=== PATIENT | female | born 1930 | race Caucasian/White ===

== ENCOUNTER 2017-08-27 16:37 | Inpatient (IN) | payer OTHER ==
[~2017-08-27] VITALS: Ht 165.1 cm; Wt 51.3 kg
[2017-08-27 16:37] VITALS: BP 113/62
[~2017-08-27 16:37] MED LIST: ACCUNEB SO1.25 MG/1 INH; ANUSOL-HC25 MG RECTAL; ASPIR 8181 MG PO; ASPIRIN EC81 M1 PO; AUGMENTIN 875875 MG PO; B12INJ IM; CELEXA 20 MG TA20 M1 PO; CELEXA20 MG PO; CIPROFLOXACIN500 M1 PO; CLONAZEPAM 0.50.5 M1 PO; COLACE100 MG PO; DILTIAZEM 24HR360 M1 PO; ENOXAPARIN40 MG/0.1 INJECTION; FLEXERIL PO; HYDROCODON-ACE1 EAC8 PO; HYDROCORTISON28.4 GM TOP; IRON325 PO; K-DUR 20 MEQ T20 MEQ PO; LASIX 20 MG TAB20 MG PO; LASIX 40 MG TAB40 M1 PO; LEVAQUIN 500 M500 M1 PO; LEVAQUIN 500 M500 M2 PO; METAMUCIL WAFER1 PK1 PO; MIRALAX17 GM PO; NORCO 7.5-3251 EACH PO; PERCOCET 5-3251 EACH PO; PERCOCET 7.5-31 EACH; PERCOCET 7.5-31 EACH PO; POTASSIUM20 PO; PREDNISONE 10 M10 M1 PO; PRILOSEC 20 MG20 MG PO; PRILOSEC40 MG PO; PROTONIX40 M1 PO; REMERON15 MG PO; SENOKOT-S1 TA1 PO; SYNALAR30 GM TP; TOPROL XL25 MG PO; ZETIA10 MG PO
[2017-08-27 16:52] LABS: ABSOLUTE BASOPHILS 0.1 thou/uL (0.0-0.2); ABSOLUTE EOSINOPHILS 0.2 thou/uL (0.0-0.7); ABSOLUTE LYMPHOCYTES 1.9 thou/uL (0.8-5.3); ABSOLUTE NEUTROPHILS 6.8 thou/uL (1.6-8.1); BASOPHILS 0.5 %; EOSINOPHILS 2.4 %; HEMATOCRIT 30.7 % (37.0-47.0); HEMOGLOBIN 9.9 gm/dL (12.0-15.0); LYMPHOCYTES 19.1 %; MCHC 32.3 g/dL (28.0-37.0); MCV 93.1 fL (80.0-100.0); MONOCYTES 9.9 %; MPV 8.2 fl. (7.2-11.1); NUCLEATED RBCS 0 /100WBC; PLATELET COUNT* 299 thou/uL (150-400); POLYS 68.1 %; RBC 3.29 mil/uL (4.20-5.00); RDW-CV 14.9 % (10.5-14.5)
[2017-08-27 17:02] LABS: ANION GAP 3 mmol/L (7-16); BUN 37 mg/dL (7-18); CALCIUM 8.2 mg/dL (8.5-10.1); CHLORIDE 104 mmol/L (98-107); CO2 30 mmol/L (21-32); CREATININE 2.4 mg/dL (0.6-1.3); GLUCOSE 97 mg/dL (70-99); POTASSIUM 4.9 mmol/L (3.5-5.1); SODIUM 137 mmol/L (136-145)
[2017-08-27 17:04] LABS: APTT 23.1 Seconds (25.0-31.3); PROTIME 9.4 Seconds (9.20-11.50)
[2017-08-27 17:08] LABS: ALBUMIN 2.7 g/dL (3.4-5.0); ALKALINE PHOSPHATASE 68 U/L (46-116); LIPASE 164 U/L (73-393); SGOT 7 U/L (15-37); SGPT 11 U/L (30-65); TOTAL BILIRUBIN 0.1 mg/dL (<0.1-1.0); TOTAL PROTEIN 6.2 g/dL (6.4-8.2); TROPONIN-I LEVEL <0.06 ng/mL (<0.06)
[2017-08-27 17:16] LABS: URINE BILIRUBIN NEGATIVE (Negative); URINE BLOOD 3+ (Negative); URINE CLARITY CLOUDY; URINE COLOR RED; URINE GLUCOSE-RANDOM NEGATIVE (Negative); URINE KETONES NEGATIVE (Negative); URINE LEUKOCYTES-REFLEX 1+ (Negative); URINE NITRITE-REFLEX NEGATIVE (Negative); URINE PROTEIN 2+ (Negative); URINE SPECIFIC GRAVITY 1.015 (1.005-1.030); URINE UROBILINOGEN 0.2 E.U./dl (0.2-1.0)
[2017-08-27 17:21] LABS: CRYSTALS None Seen /LPF (None Seen); SQUAMOUS NONE SEEN /LPF (0-3); URINE RBC >20 Many /HPF (0-2)
[2017-08-27 17:22] LABS: BACTERIA-REFLEX None Seen /HPF (None Seen); CASTS None Seen /LPF (None Seen); URINE WBC-REFLEX >25 Many /HPF (0-5)
[2017-08-27 20:05] VITALS: BP 102/54
[2017-08-27 20:40] VITALS: BP 123/65; BP 131/60
[2017-08-28] VITALS: BP 108/60
[2017-08-28 04:00] VITALS: BP 146/68
--- NOTE | 2017-08-28 04:26 | NUR ---
PATIENT REMAINS STABLE SINCE ADMISSION TO FLOOR AND PROGRESSING TOWARDS GOALS: PATIENT HAS NOT HAD ANY BLOODY STOOLS. HYDROCORTISONE CREAM APPLIED TO EXTERNAL HEMORRHOIDS. PATIENT HAS BEEN VOIDING ADEQUATELY THIS SHIFT. PATIENT DENIES NAUSEA THIS SHIFT. ON 2L O2 NC WITH SATS >92%. HOURLY ROUNDING OBSERVED. CALL LIGHT WITHIN REACH
[2017-08-28 04:38] LABS: ABSOLUTE BASOPHILS 0.1 thou/uL (0.0-0.2); ABSOLUTE EOSINOPHILS 0.2 thou/uL (0.0-0.7); ABSOLUTE LYMPHOCYTES 1.3 thou/uL (0.8-5.3); ABSOLUTE MONOCYTES 0.8 thou/uL (0.0-1.2); ABSOLUTE NEUTROPHILS 5.5 thou/uL (1.6-8.1); BASOPHILS 0.8 %; EOSINOPHILS 2.3 %; HEMATOCRIT 28.3 % (37.0-47.0); HEMOGLOBIN 9.3 gm/dL (12.0-15.0); LYMPHOCYTES 16.2 %; MCH 30.5 pg (26.0-34.0); MCHC 32.8 g/dL (28.0-37.0); MONOCYTES 9.8 %; MPV 7.7 fl. (7.2-11.1); NUCLEATED RBCS 0 /100WBC; PLATELET COUNT* 263 thou/uL (150-400); POLYS 70.9 %; RBC 3.04 mil/uL (4.20-5.00); RDW-CV 14.9 % (10.5-14.5); WBC 7.7 thou/uL (4.0-11.0)
[2017-08-28 05:13] LABS: CALCIUM 8.3 mg/dL (8.5-10.1); POTASSIUM 4.8 mmol/L (3.5-5.1)
[2017-08-28 09:38] VITALS: BP 154/78
[2017-08-28 11:20] VITALS: BP 146/82
--- NOTE | 2017-08-28 14:46 | EKG ---
[place] [address] ELECTROCARDIOGRAM REPORT Name: LUNGBRANDEN Room: [address] IN .R.#: [id number] Admission: 08/27/17 Attend Phys: Arie Khoury MD Discharge: Date of : 10/19/[birth year] Report #: [id number] THIS REPORT FOR: //name// [facility] ED Test Date: 2017-08-27 Test Time: 16:50:46 Pat Name: BRANDEN MARIE Department: Room: Gender: F Cognos: Bk SULLIVAN : 1930 Requested By: Yrn Finch Order Number: [id number] MD: Adan Aguirre Measurements Intervals [place] Rate: 64 P: 13 NJ: 288 QRS: -36 QRSD: 85 T: 15 QT: 401 QTc: 414 Interpretive Statements Sinus rhythm Atrial premature complex Prolonged NJ interval Left ventricular hypertrophy, by voltage Left axis deviation, consider anterior fascicular block Anterior Q waves, possibly due to LVH or LAFB Compared to ECG 12/04/2016 16:59:46 Atrial premature complex(es) now present Left ventricular hypertrophy now present Q waves now present Left-axis deviation no longer present Electronically Signed On 08-28-2017 14:46:08 CDT by Adan Aguirre [email or web address] <ELECTRONICALLY SIGNED> By: Adan Aguirre MD, [facility] 08/28/17 1446 165 [id number] Adan Aguirre MD, [facility] /EPI
[2017-08-28 14:56] LABS: % SATURATION 17 % (20-39); IRON 34 ug/dL (50-175)
--- NOTE | 2017-08-28 15:10 | NUR ---
Pt is A&O. Resides at [facility]. Pt states that facility provides meals and assist with her showers. Pt is independent with all other IADLS. Pt has a walker and wc that she can use as needed. Hx of . Hx of SNF at [facility] and [facility]. Strong support sx. Goal is to return to [facility] at or. Following.
[2017-08-28 15:24] VITALS: BP 114/60
--- NOTE | 2017-08-28 18:54 | NUR ---
PT FREWUENTLY URINATING 50-100MLS AT A TIME. INFORM DR. SHARMA OF [facility] 100. INSTRUCTED TO DISCONTINUE IVF. PT HAD MODERATE BOWEL MOVEMENT TODAY.
--- NOTE | 2017-08-28 19:18 | NUR ---
HEATHER DUFFYORT GIVEN TO JOSETTE HUGHES.
[2017-08-28 20:00] VITALS: BP 131/71
[2017-08-29] VITALS: BP 146/73
--- NOTE | 2017-08-29 03:10 | NUR ---
PT ALERT ORIENTED. CALLS OUT FREQUENTLY FOR BP AT LEAST TWICE PER HR. TELEMETRY SHOWS SR [address] DEGREE AVB. O2 AT 2 LITERS NC. WILL CONTINUE TO MONITOR.
[2017-08-29 03:38] VITALS: BP 135/68
[2017-08-29 04:58] LABS: ABSOLUTE EOSINOPHILS 0.2 thou/uL (0.0-0.7); ABSOLUTE LYMPHOCYTES 1.2 thou/uL (0.8-5.3); ABSOLUTE MONOCYTES 0.8 thou/uL (0.0-1.2); ABSOLUTE NEUTROPHILS 6.9 thou/uL (1.6-8.1); BASOPHILS 0.5 %; EOSINOPHILS 2.5 %; HEMATOCRIT 30.2 % (37.0-47.0); HEMOGLOBIN 9.8 gm/dL (12.0-15.0); LYMPHOCYTES 12.7 %; MCH 30.1 pg (26.0-34.0); MCHC 32.4 g/dL (28.0-37.0); MCV 92.9 fL (80.0-100.0); MONOCYTES 9.2 %; NUCLEATED RBCS 0 /100WBC; PLATELET COUNT* 275 thou/uL (150-400); POLYS 75.1 %; RBC 3.26 mil/uL (4.20-5.00); RDW-CV 14.8 % (10.5-14.5); WBC 9.2 thou/uL (4.0-11.0)
[2017-08-29 05:11] LABS: ALBUMIN 2.4 g/dL (3.4-5.0); CALCIUM 8.9 mg/dL (8.5-10.1); CREATININE 1.8 mg/dL (0.6-1.3); POTASSIUM 4.8 mmol/L (3.5-5.1); TOTAL BILIRUBIN 0.2 mg/dL (<0.1-1.0); TOTAL PROTEIN 5.8 g/dL (6.4-8.2)
[2017-08-29 07:49] VITALS: BP 150/88
--- NOTE | 2017-08-29 08:56 | NUR ---
ASSUMED CARE OF PT THIS AM AROUND 0715- DRIED YEAST SUPERVISOR IN PLACE ORDERED, TRACING SR WITH 1ST DEGREE- UPON ASSESSMENT PT NOTED TO BE RESTING IN BED, EYES CLOSED BUT ARROUSABLE- PT A&O X1-2 WITH NOTED CONFUSSION- CONTINENT OF BOWEL AND BLADDER, USING BED NG-ASSIST X1 WITH TRANSFERS- LCTA, RESP EVEN AND UN-LABORED- VSS, O2 SAT 99% ON 2L VIA NC- ABDOMEN SOFT/FLAT/NON-TENDER, BSX 4 QUADS- PT REPORTS BM X2 DAYS AGO, SCHEDULED SOFTNER GIVEN THIS AM- IV NOTED TO LEFT FA INTACT, IV ABT GIVEN THIS AM PRESCIBED- FULL LIQUIDS IN PLACE WITH GOOD PO INTAKE NOTED THIS AM WITH BREAKFAST- PRN HYDROCODONE GIVEN THIS AM AT 0838 FOR CHRONIC BACK PAIN- CALL LIGHT AND PERSONAL BELONGINGS WITH IN REACH- HOURLY ROUNDS IN PLACE R/T SAFETY/NEEDS- ALL NEEDS MET AT THIS TIME-WCTM
[2017-08-29 11:15] VITALS: BP 150/88
--- NOTE | 2017-08-29 11:23 | NUR ---
Pt discharging back to her SOFIA today at [facility]. [facility] to continuous pickling line pickler at 2pm. Faxed dc orders. Nurse to call report to Addis at [phone]. Left for Pt's son Andre.
[2017-08-29] MEDS ORDERED: AUGMENTIN 875-1 EACH PO (11:47)
[2017-08-29 12:00] VITALS: BP 157/88
--- NOTE | 2017-08-29 14:47 | NUR ---
ORDERS RECIEVED FOR OKAY TO D/C THIS SHIFT BACK TO [place] AT [facility] PER - IV TO LEFT FA D/C'D ALONG WITH DIRECTOR OF PHYSICAL THERAPY PRIOR TO D/C- REPORT CALLED TO [facility] WITH REPORT GIVEN TO MICHAELLE SNOW WITH ALL QUESTIONS AND CONCERNS ADDRESSED- NEW ABT COMMUNICATED WELL NEED FOR BOWEL REGEMINEN FOR CONSTIPATION WITH NOTED SCHEDULED MIRALAX ADDED WITH STOOL SOFTNERS- D/C TEACHING/EDUCATION GIVEN TO PT WITH ALL QUESTIONS AND CONCERNS ADDRESSED- BELONGINGS PACKED AND ACCOUNTED FOR PER PT AND TECH PRIOR TO D/C- PT CURRENLTY RESTING IN BED, DRESSED AWAITING W/C VAN FOR TRANSPORT- ALL NEEDS MET AT THIS TIME-WCTM
--- NOTE | 2017-09-10 08:22 | CON ---
[address] [address] CONSULTATION Name: BRANDEN MARIE Room: [address] IN .R.#: [id number] Admission: 08/27/17 Attend Phys: Arie Khoury MD Discharge: 08/29/17 Date of : 10[birth year] Report #: [id number] THIS REPORT FOR: //name// CC: Arie Cook Primary Care Physician at [facility] Joshua Perales DICTATED BY: Sandy Harvey [facility] DATE OF SERVICE: 08/28/2017 PRIMARY CARE PHYSICIAN: At the [facility]. Please note at the time of this dictation, the patient was seen and physically examined by myself. REASON FOR CONSULTATION: Rectal bleeding. HISTORY OF PRESENT ILLNESS: This is an 86-year-old female who presented to the Emergency Room after noticing on Sunday and then again on Sunday morning, she had an episode of bright red blood following with her bowel movement and then a repeat again the following day. She has not had any further bowel movements since she has been here at the hospital; however, she has been kept n.p.o. She denies any nausea, vomiting, fever or chills or any abdominal pain at this time. She states she has been having some issues with constipation here lately as well. The patient was last seen by us in 2013 for a similar problem for rectal bleeding and when she underwent a flex sigmoidoscopy that showed diverticulosis and large internal and external hemorrhoids. Since she has been here, she has had no further issues with any bleeding and hemoglobin has been relatively stable in the 9 range, which is close to her baseline. ALLERGIES: No known drug allergies. MEDICATIONS: From home include diltiazem, clonazepam, hydrocodone, aspirin, Flexeril, MiraLax, Remeron, Lasix, Protonix, K-Dur, iron, Celexa, and B12. PAST MEDICAL HISTORY: Hypertension, TIA, OR, atrial fib, dementia, tremors, GERD, and some depression along with acute kidney injury. PAST SURGICAL HISTORY: Negative. FAMILY HISTORY: Noncontributory. SOCIAL HISTORY: Denies any alcohol, tobacco [place] [address] CONSULTATION Name: BRANDEN MARIE Room: [address]#: [id number] Admission: 08/27/17 Attend Phys: Arie Khoury MD Discharge: 08/29/17 Date of : 10/19/[birth year] Report #: [id number] REVIEW OF SYSTEMS: Twelve-point review of systems is essentially negative except what is mentioned in the HPI. PHYSICAL EXAMINATION: VITAL SIGNS: Temperature 36.9, pulse 80, respirations 18, blood pressure 146/82. HEART: Regular rate and rhythm. LUNGS: Clear, slightly diminished. ABDOMEN: Soft, positive bowel sounds in all 4 quadrants with no masses or tenderness noted. LABORATORY DATA: Hemoglobin on admission was 9.9, she is 9.3, hematocrit 28.3, white count is 7.7, platelets 263. Sodium 141, potassium 4.8, chloride 108, CO2 of 27, BUN is 30, creatinine is 2, GFR is 24, glucose 79. PT is 9.4, INR is 1. CT of the abdomen and pelvis shows a lesion in the pancreatic head that is stable, otherwise diverticular disease and otherwise negative. IMPRESSION: 1. Rectal bleeding. 2. History of constipation. 3. Chronic anemia. PLAN: 1. We will monitor H and H. 2. Monitor for overt bleeding. 3. We will start Colace b.i.d. 4. Labs, ferritin, iron studies and B12. 5. Full liquid diet. 6. Further recommendations to be made after Dr. Garay sees the patient later today. Thank you for allowing us to participate in this patient's care. Please do not hesitate to call with any questions in regard to this consult. <ELECTRONICALLY SIGNED> By: Yasmani Garay MD 09/10/17 0822 1409 [id number] Garay MD /nt
--- NOTE | 2017-09-10 08:22 | CON ---
[address] [address] CONSULTATION Name: BRANDEN MARIE Room: [address] IN M.R.#: [id number] Admission: 08/27/17 Attend Phys: Arie Khoury MD Discharge: 08/29/17 Date of : 10/[birth year] Report #: [id number] THIS REPORT FOR: //name// CC: Arie Carrington [facility] DATE OF SERVICE: 08/28/2017 ADDENDUM I have personally seen and examined the patient and reviewed labs and imaging. The patient with history of diverticular bleed in the past, who had a flex sigmoidoscopy a year ago, which was significant for large internal and external hemorrhoids and diverticula. She presents with rectal bleeding and constipation. Her hemoglobin is range of 9. She usually runs between 7-11. Currently, there is no evidence of any active GI bleeding. Given the patient's age, we will monitor her and if her hemoglobin remains stable, no further action is needed. If she drops her hemoglobin or if she starts having acute bleeding, we will consider RBC tagged scan. Meanwhile, I will check her iron levels and replace as needed. <ELECTRONICALLY SIGNED> By: Yasmani Garay MD 09/10/17 0822 [id number] Maria E Garay MD /nt
== END 2017-08-29 14:55 | DRG 177 ==
LOC: M.ERS 16:37 → M.TBA-ER 17:17 → M.2W 17:17
PROVIDERS: Family Medicine; Nurse Practitioner Adult Health; ADMIT Internal Medicine
DX: J69.0 Pneumonitis due to inhalation of food and vomit (principal); J96.00 Acute respiratory failure, unspecified whether with hypoxia or hypercapnia; D62 Acute posthemorrhagic anemia; N17.9 Acute kidney failure, unspecified; I10 Essential (primary) hypertension; I48.91 Unspecified atrial fibrillation; F03.90 Unspecified dementia, unspecified severity, without behavioral disturbance, psychotic disturbance, mood disturbance, and anxiety; K21.9 Gastro-esophageal reflux disease without esophagitis; F32.9 Major depressive disorder, single episode, unspecified; K57.90 Diverticulosis of intestine, part unspecified, without perforation or abscess without bleeding; E86.0 Dehydration; R25.1 Tremor, unspecified; I25.2 Old myocardial infarction; Z86.73 Personal history of transient ischemic attack (TIA), and cerebral infarction without residual deficits; Z79.899 Other long term (current) drug therapy; Z79.82 Long term (current) use of aspirin; K64.9 Unspecified hemorrhoids

== ENCOUNTER 2018-04-19 11:46 | Inpatient (IN) | payer OTHER ==
[~2018-04-19] VITALS: Ht 152.4 cm; Wt 53.9 kg
--- NOTE | ~2018-04-19 | CON ---
[address] [address] CONSULTATION Name: BRANDEN MARIE Room: [address] IN M.R.#: [id number] Admission: 04/19/18 Attend Phys: Karla Paul MD Discharge: Date of : 10[birth year] Report #: [id number] THIS REPORT FOR: //name// [facility]: [facility] DATE OF SERVICE: 04/20/2018 REASON FOR CONSULTATION: Elevated creatinine. HISTORY OF PRESENT ILLNESS: The patient is an 87-year-old female, with a history of chronic kidney disease stage 4, baseline creatinine of 1.8-2.4 based on her lab results in August 2017, admitted after she presented with persistent cough and left-sided chest pain with hypoxia. We are consulted to assist with diagnosis and management of her elevated creatinine. The patient's creatinine on presentation was at 2.4, it is down to 2.3 today. The patient states that she has had decreased oral intake over the last few days as she was not feeling well. Denies dysuria, urgency or urinary frequency. No contrast exposures. PAST MEDICAL HISTORY: As mentioned above. In addition, she has history of TIAs, RI, atrial fibrillation, dementia, GERD, depression, tremors, lumpectomy. FAMILY HISTORY: No family history of kidney disease. Family history of heart disease. SOCIAL HISTORY: No smoking, alcohol or illicit drug use. ALLERGIES: The patient is not allergic to any medications. SOCIAL HISTORY: She is a skilled nursing resident. No alcohol. No smoking. No illicit drug use. REVIEW OF SYSTEMS: A 12-point review of system was done and pertinent positives are mentioned in the history of present illness. PHYSICAL EXAMINATION: VITAL SIGNS: Has a blood pressure of 110/58, pulse rate of 65, respiratory rate of 15, temperature of 36.2, oxygen saturation is 98% on 2 liters nasal cannula. GENERAL: She does not appear to be in any respiratory distress at this time. HEENT: Dry buccal membranes, pink conjunctivae, anicteric sclerae. NECK: No JVD. Trachea midline. CARDIOVASCULAR: Showed normal S1 and S2. She has a holosystolic murmur at the apex. PULMONARY: Showed rhonchi in bilateral lungs. ABDOMEN: Soft, nontender with positive bowel sounds. EXTREMITIES: Showed no edema, [place] [address] CONSULTATION Name: BRANDEN MARIE Room: [address] IN [facility]#: [id number] Admission: 04/19/18 Attend Phys: Karla Paul MD Discharge: Date of : 10[birth year]19/[birth year] Report #: [id number] SKIN: Warm and dry. NEUROLOGIC: Nonfocal. LABORATORY DATA: Reviewed. White cell count of 7.8, hemoglobin of 7.6, platelet count of 266. Chemistry showed that she has sodium of 141, potassium 4.6, chloride 108, BUN and creatinine are 24 and 2.3, calcium of 8.2, albumin of 1.8. Urine studies showed positive blood, positive esterase and 6-15 white cells. IMPRESSION: 1. Acute on chronic kidney disease, stage 4. Creatinine appears to be close to her baseline creatinine. Her creatinine in August 2017 was between 1.8 and 2.2 with GFR of about 23-27. Slight increase in the creatinine, probably prerenal azotemia with her decreased oral intake over the last few days. 2. Essential hypertension. 3. Chronic atrial fibrillation. 4. Pneumonia. 5. Urinary tract infection. 6. Dementia. PLAN: Follow up on urine culture. Continue antibiotics. Gentle hydration. Renal ultrasound is reviewed and it showed no hydronephrosis. She has inferior right renal cyst about 2 cm in size. Further recommendations to follow based on hospital course. Once again, thank you for the consult. By: 0902 40Caleb Molina MD /nt
[~2018-04-19 11:46] MED LIST changes: +AUGMENTIN 875-1 EACH PO
[2018-04-19 11:50] VITALS: BP 125/65
[2018-04-19 12:00] LABS: HEMATOCRIT 27.5 % (37.0-47.0); HEMOGLOBIN 8.7 gm/dL (12.0-15.0); MCH 29.8 pg (26.0-34.0); MCHC 31.5 g/dL (28.0-37.0); MCV 94.4 fL (80.0-100.0); MPV 8.7 fl. (7.2-11.1); NUCLEATED RBCS 0 /100WBC; PLATELET COUNT* 297 thou/uL (150-400); RBC 2.91 mil/uL (4.20-5.00); RDW-CV 14.7 % (10.5-14.5); WBC 9.6 thou/uL (4.0-11.0)
[2018-04-19] MEDS ORDERED: CHOLECALCIFEROL1 GM PO (12:04)
[2018-04-19] MEDS ORDERED: MUCINEX600 MG PO (12:05)
[2018-04-19] MEDS ORDERED: LEVAQUIN 750 M750 MG PO (12:05)
[2018-04-19] MEDS ORDERED: ATROVENT HFA14 GM INH (12:07)
[2018-04-19 12:08] LABS: INR 0.9; PROTIME 9.3 Seconds (9.20-11.50)
[2018-04-19 12:09] LABS: CALCIUM 8.5 mg/dL (8.5-10.1); CREATININE 2.4 mg/dL (0.6-1.3)
[2018-04-19 12:20] LABS: ALBUMIN 2.2 g/dL (3.4-5.0); MAGNESIUM 1.9 mg/dL (1.8-2.4); TOTAL BILIRUBIN 0.2 mg/dL (<0.1-1.0); TOTAL PROTEIN 6.3 g/dL (6.4-8.2); TROPONIN-I LEVEL 0.48 ng/mL (<0.06)
[2018-04-19 12:23] LABS: ABSOLUTE LYMPHOCYTES 1.2 thou/uL (0.8-5.3); ABSOLUTE MONOCYTES 0.7 thou/uL (0.0-1.2); ABSOLUTE NEUTROPHILS 7.7 thou/uL (1.6-8.1); PLATELET ESTIMATE ADEQUATE
[2018-04-19 12:24] LABS: ANISOCYTOSIS 1+; POIKILOCYTOSIS 1+
[2018-04-19 13:51] LABS: URINE BILIRUBIN NEGATIVE (Negative); URINE BLOOD 2+ (Negative); URINE CLARITY CLEAR; URINE COLOR YELLOW; URINE GLUCOSE-RANDOM NEGATIVE (Negative); URINE KETONES NEGATIVE (Negative); URINE LEUKOCYTES-REFLEX 1+ (Negative); URINE NITRITE-REFLEX NEGATIVE (Negative); URINE PROTEIN NEGATIVE (Negative); URINE UROBILINOGEN 0.2 E.U./dl (0.2-1.0)
[2018-04-19 13:58] LABS: BACTERIA-REFLEX 1-9 Few /HPF (None Seen); CASTS None Seen /LPF (None Seen); CRYSTALS None Seen /LPF (None Seen); MUCUS None Seen strn/LPF (None Seen); SQUAMOUS 4-10 Moderate /LPF (0-3); URINE RBC 0-2 Rare /HPF (0-2); URINE WBC-REFLEX 6-15 Few /HPF (0-5)
[2018-04-19 14:14] LABS: INFLUENZA A ANTIGEN None Detected (None Detect); INFLUENZA B ANTIGEN None Detected (None Detect)
[2018-04-19 15:52] VITALS: BP 134/58
[2018-04-19 16:00] VITALS: BP 129/60
--- NOTE | 2018-04-19 17:39 | NUR ---
PT ADMITTED FROM ED WITH PNEUMONIA, HYPOXIA, AND ELEVATED TROP. PT DENIES C/O. HRR, MURMUR, TELE SR. LUNGS COARSE, COUGH LOOSE AND PT REPORTS NO SPUTUM. RESPIRATIONS EVEN AND UNLABORED AT REST, O2 SAT UPPER 90'S 2L O2 NC. PT DOES NOT WEAR O2 AT HOME. PT UP WITH MIN ASSIST, TREMORS ALL EXTREMITIES. PT ORIENTED TO ROOM, ABLE TO MAKE NEEDS KNOWN, CALL LIGHT IN REACH
--- NOTE | 2018-04-19 18:17 | EKG ---
[place] [address] ELECTROCARDIOGRAM REPORT Name: LUNGBRANDEN Room: [address] ADM IN M.R.#: [id number] Admission: 04/19/18 Attend Phys: Karla Paul MD Discharge: Date of : 10[birth year] Report #: [id number] THIS REPORT FOR: //name// [facility] ED Test Date: 2018-04-19 Test Time: 11:55:10 Pat Name: BRANDEN MARIE Department: Room: [facility] Gender: F Food Vendor: Bk SULLIVAN : 1930 Requested By: Hemant Ozuna Order Number: [id number] MD: Adan Aguirre Measurements Intervals [place] Rate: 78 P: -4 OR: 244 QRS: -38 QRSD: 86 T: 41 QT: 378 QTc: 431 Interpretive Statements Sinus rhythm Prolonged OR interval Delayed R-wave progression Left axis deviation, consider left anterior fascicular block Compared to ECG 08/27/2017 16:50:46 Atrial premature complex(es) no longer present Q waves no longer present Electronically Signed On 04-19-2018 18:17:15 ENGINEERING SURVEYOR by Adan Aguirre [email or web address] <ELECTRONICALLY SIGNED> By: Adan Aguirre MD, FACC 04/19/18 1817 1155 1155 Adan Aguirre MD, FACC /EPI
[2018-04-19 20:00] VITALS: BP 144/69
[2018-04-19 23:04] VITALS: BP 136/52
[2018-04-20 04:00] VITALS: BP 110/58
--- NOTE | 2018-04-20 04:46 | NUR ---
PATIENT REMAINS STABLE THIS SHIFT, VSS ON 2L O2 NC. PATIENT HAD ISSUES WITH URINARY RETENTION, BLADDER SCAN 607ML. BELLO CATHETER INSERTED PER ORDERS. PATIENT RESTING COMFORTABLY THROUGHOUT SHIFT. CALL LIGHT WITHIN REACH
[2018-04-20 05:18] LABS: HEMATOCRIT 23.8 % (37.0-47.0); HEMOGLOBIN 7.6 gm/dL (12.0-15.0); MCH 30.3 pg (26.0-34.0); MCHC 32.1 g/dL (28.0-37.0); MCV 94.4 fL (80.0-100.0); MPV 8.5 fl. (7.2-11.1); RBC 2.52 mil/uL (4.20-5.00); RDW-CV 14.7 % (10.5-14.5); WBC 7.8 thou/uL (4.0-11.0)
[2018-04-20 05:32] LABS: ALBUMIN 1.8 g/dL (3.4-5.0); CALCIUM 8.2 mg/dL (8.5-10.1); CREATININE 2.3 mg/dL (0.6-1.3); MAGNESIUM 1.8 mg/dL (1.8-2.4); POTASSIUM 4.6 mmol/L (3.5-5.1); TOTAL BILIRUBIN 0.2 mg/dL (<0.1-1.0); TOTAL PROTEIN 5.4 g/dL (6.4-8.2)
[2018-04-20 08:00] VITALS: BP 130/63
--- NOTE | 2018-04-20 08:00 | NUR ---
AM ASSESSMENT COMPLETE, DEFER TO COMPUTER CHARTING. ROUNDING AND BACKING MACHINE OPERATOR TRACKING SR WITH 1ST AVB. DENIES PAIN, DIZZINESS OR ANY DISCOMFORT AT THIS TIME. 02 ON 2L PER NC. HOB ELEVATED, CALL LIGHT WTIHIN REACH. WILL MONITOR.
[2018-04-20 10:24] LABS: % SATURATION 9 % (20-39); IRON 21 ug/dL (50-175)
[2018-04-20 12:01] VITALS: BP 106/63
--- NOTE | 2018-04-20 13:28 | CON ---
[address] [address] CONSULTATION Name: BRANDEN MARIE Room: [address] IN M.R.#: [id number] Admission: 04/19/18 Attend Phys: Karla Paul MD Discharge: Date of : [birth year] Report #: [id number] THIS REPORT FOR: //name// CC: [facility] DATE OF SERVICE: 04/19/2018 TYPE OF REPORT: Cardiology consultation. HISTORY OF PRESENT ILLNESS: The patient is an 87-year-old single white female who I was asked to see in the hospital today after she complained of being short of breath. The patient has an extensive past medical history. She has had multiple hospitalizations here at [facility]. She actually saw Dr. Mead with the Cardiology service here at [facility] back in 1997 with arm pain. She ruled out for myocardial infarction. She underwent a cardiac catheterization that showed normal coronary arteries and normal left ventricular function. She was again seen by Dr. Mead in 2005. She has a history of paroxysmal atrial fibrillation and was placed on Rythmol. She converted to sinus rhythm. She was actually seen by doctor with the Cardiology Service in 2004 when she again complained of chest pain. She was on Rythmol at that time and was not felt to be a very good candidate for anticoagulation. Her chest pain was felt to be noncardiac. She was last admitted here to [facility] a year ago with chest pain and lower GI bleeding. She is not very active at the correction but does use a walker. The patient was brought to the Emergency Room today with shortness of breath and a cough. I was asked to see her for further evaluation and treatment. She denies any recent chest pain, irregular heartbeat or syncope. PAST MEDICAL HISTORY: She has had previous tonsillectomy and appendectomy. She has a history of a tremor, memory loss and hypertension. She has had previous history of hypertension. She has had her gallbladder removed. MEDICATIONS: At this time at the correction consists of Cardizem, aspirin, Lasix, Remeron and Protonix. ALLERGIES: She has no known drug allergies. FAMILY HISTORY: Her father had heart disease. SOCIAL HISTORY: She has been three times. There is a correction in [place]. No smoking. Rarely drinks alcohol. REVIEW OF SYSTEMS: She has had no history of stroke. She has no history of asthma. She has had a history of anemia, history of GI bleeding, chronic kidney disease. She has chronic tremor[place] [address] CONSULTATION Name: BRANDEN MARIE Room: [address]#: [id number] Admission: 04/19/18 Attend Phys: Karla Paul MD Discharge: Date of : 10[birth year]19/[birth year] Report #: [id number] PHYSICAL EXAMINATION: GENERAL: Revealed an elderly frail appearing female, lying in bed. She appeared in no distress. VITAL SIGNS: She has blood pressure 120/60, pulse is 80 and she is afebrile. HEENT: She is anicteric. Conjunctivae are pale. Mucous members are dry. CHEST: Reveal coarse breath sounds. CARDIOVASCULAR: Regular rate and rhythm. Grade 3 holosystolic murmur at the apex. ABDOMEN: Soft. EXTREMITIES: Had no edema. Dorsalis pedis pulse cannot be palpated. SKIN: Cool and dry. NEUROLOGICAL: Nonfocal. RADIOLOGICAL DATA: Her ECG showed a sinus rhythm, left axis, septal Q-waves. Additional workup, she had an echocardiogram in 2014 that showed ejection fraction 60% and mild aortic stenosis. Her chest x-ray today she had a large hiatal hernia, chronic lung changes, cardiomegaly. She had a CT scan of the chest using the PE protocol today that showed evidence of the pneumonia. LABORATORY DATA: Her lab work, sodium 139, BUN 32, creatinine 2.4 and it was 2.4 in August of last year. Liver function studies were normal. Albumin is 2.2. Troponin 0.58. BNP 1604. White blood cell count 9.6 and hemoglobin 8.7, it was 7.6 in 2017. IMPRESSION AND RECOMMENDATIONS: 1. History of atrial fibrillation. I would continue diltiazem. 2. Mild aortic stenosis. 3. Pneumonia. 4. Anemia. 5. Hypertension. The patient is on a calcium jas. 6. Chronic kidney disease. 7. Resting tremor. <ELECTRONICALLY SIGNED> By: Maximo Morales MD, [facility] 04/20/18 1328 1720 [id number] Morales MD, FAC /nt
--- NOTE | 2018-04-20 16:17 | NUR ---
SAFETY SITTER DC'D PER ORDERS. PATIENT REMAINS ALERT ORIENTED. NO COMPLAINTS OF CHEST PAIN, DIZZINESS, NAUSEA OR ANY DISCOMFORT TO NURSING. TOLERATING DIET. 02 ON 2L PER NC, NO SIGN OF RESPIRATORY DISTRESS. HOB ELEVATED, CALL LIGHT WITHIN REACH. FAMILY IN EARLIER TO VISIT. WILL CONTINUE WITH PLAN OF CARE.
[2018-04-20 16:28] VITALS: BP 115/62
[2018-04-20 20:00] VITALS: BP 116/66
[2018-04-20 22:08] LABS: IgA 228 mg/dL (64-422); IgG 698 mg/dL (700-1600); IgM 55 mg/dL (26-217)
[2018-04-21 04:00] VITALS: BP 126/83
[2018-04-21 05:32] LABS: HEMATOCRIT 24.8 % (37.0-47.0); HEMOGLOBIN 8.1 gm/dL (12.0-15.0); MCH 30.6 pg (26.0-34.0); MCHC 32.8 g/dL (28.0-37.0); MCV 93.3 fL (80.0-100.0); MPV 8.4 fl. (7.2-11.1); RBC 2.66 mil/uL (4.20-5.00); RDW-CV 14.3 % (10.5-14.5); WBC 8.3 thou/uL (4.0-11.0)
--- NOTE | 2018-04-21 05:38 | NUR ---
ASSUMED CARE OF PT AFTER REPORT AT 1930. PT A&OX3. NOT ORIENTED TO TIME. FORGETFUL. PT ON O2 AT 2L NC WITH 93% O2 SAT. PT ON MEDSURG STATUS. PT UP WITH 1 ASSIST. PT WITH BELLO TO DEPENDENT DRAIN. DENIES ANY PAIN OR DISCOMFORT. HOURLY ROUNDING OBSERVED. CALL LIGHT WITHIN REACH.
[2018-04-21 05:57] LABS: ALBUMIN 1.9 g/dL (3.4-5.0); CALCIUM 8.6 mg/dL (8.5-10.1); CREATININE 2.4 mg/dL (0.6-1.3); MAGNESIUM 1.7 mg/dL (1.8-2.4); TOTAL BILIRUBIN 0.2 mg/dL (<0.1-1.0); TOTAL PROTEIN 5.7 g/dL (6.4-8.2)
--- NOTE | 2018-04-21 08:20 | NUR ---
ASSUMED PT. CARE AND RECEIVED REPORT AT 0730. PT A/OX3 (COULDN'T STATE YEAR), VSS, PT MED/SURG STATUS. ON 2L NC @ 92%. DENIES CURRENT SOB/COUGH. C/O CHRONIC BACK PAIN TO LEFT SIDE 1-05/26 CURRENTLY. FULL ASSESSMENT COMPLETED, REFER TO CHARTING. ACE NOTED TO DD WITH CLEAR YELLOW DRAINAGE. CALL LIGHT IN REACH, FALL PRECAUTIONS IN PLACE. WILL CONTINUE WITH PLAN OF CARE.
[2018-04-21 08:30] VITALS: BP 126/71
[2018-04-21 12:46] VITALS: BP 124/77
--- NOTE | 2018-04-21 15:13 | NUR ---
PT. DAUGHTER INTO VISIT. UPDATE GIVEN ON PT. DAY AND CURRENT PLAN OF CARE. PT. C/O PAIN IN BACK, ASKED FOR PAIN PILL. HYDROCODONE GIVEN PER JUN.
--- NOTE | 2018-04-21 18:58 | NUR ---
PT. UP TO RECLINER GOOD PORTION OF THE DAY. TREATED FOR BACK PAIN X 1 WITH MODERATE RELIEF. GOOD APPETITE WITH MEALS. PT. DAUGHTER AND NEICE INTO VISIT THIS SHIFT. REMAINS ON 2L NC. USING WALKER WITH MODERATE ASSIST, STATES SHE STILL FEELS WEAKER THAN NORMAL. HOURLY ROUNDING COMPLETED THROUGH OUT THE DAYF FOR PT. SAFETY.
[2018-04-21 20:00] VITALS: BP 102/57
[2018-04-22 00:10] VITALS: BP 112/56
--- NOTE | 2018-04-22 05:04 | NUR ---
ASSUMED CARE OF PT AFTER REPORT AT 1930. PT A&OX3. NOT ORIENTED TO TIME. FORGETFUL. PT ON O2 AT 2L NC WITH 92% O2 SAT. PT ON MEDSURG STATUS. PT UP WITH 1 ASSIST TO RESTROOM. PT WITH BELLO TO DEPENDENT DRAIN. PT COMPLAINED OF LEFT LEG PAIN WITH PAIN SCALE OF 5/10- PAIN MEDS GIVEN PER JUN. HOURLY ROUNDING OBSERVED. CALL LIGHT WITHIN REACH.
[2018-04-22 05:24] LABS: HEMOGLOBIN 8.3 gm/dL (12.0-15.0); MCV 93.5 fL (80.0-100.0); MPV 8.3 fl. (7.2-11.1); RBC 2.78 mil/uL (4.20-5.00); WBC 8.5 thou/uL (4.0-11.0)
[2018-04-22 06:15] LABS: CALCIUM 8.7 mg/dL (8.5-10.1); CREATININE 2.6 mg/dL (0.6-1.3); MAGNESIUM 1.7 mg/dL (1.8-2.4); POTASSIUM 5.2 mmol/L (3.5-5.1)
--- NOTE | 2018-04-22 08:30 | NUR ---
ASSUMED PT. CARE AND RECEIVED REPORT AT 0730. PT A/OX3 WITH FORGETFULNESS, VSS, PT. MED/SURG STATUS. ON 2L NC @ 94% WITH CLEAR/DIMINISH LUNG ANTHONY. PT. STATES PAIN PILL HELPED THIS MORNING, BUT HAVING SOME MINOR ACHES TO LEFT LEG. FULL ASSESSMENT COMPLETED, REFER TO CHARTING. PT. ASSISTED WITH SET UP FOR BREAKFAST. CALL LIGHT IN REACH, FALL PRECAUTIONS IN PLACE. WILL CONTTINUE WITH PLAN OF CARE.
[2018-04-22 08:33] VITALS: BP 132/64
--- NOTE | 2018-04-22 11:00 | NUR ---
MET WITH PT AND SPOKE WITH DURGA/ROBERT TO DISCUSS HOME SITUATION/DC PLANNING. PT LIVES IN ASSISTED LIVING AT [facility], WOULD LIKE TO BE ABLE TO RETURN THERE AT [place] BUT UNDERSTANDS MAY NEED SNF AT [place] DEPENDING ON HER PROGRESS. PT HAS BEEN TO SNF THERE IN PAST ALSO. PT USES WALKER AND GOES TO DINING ROOM FOR MEALS. HAS ASSIST WITH LAUNDRY, HOUSEKEEPING AND PERSONAL CARE NEEDED. CALLED AND FAXED UPDATED CLINICAL TO [facility]. WILL FOLLOW
[2018-04-22 16:00] VITALS: BP 129/66
--- NOTE | 2018-04-22 19:47 | NUR ---
PT. STABLE THROUGH OUT THE DAY. UP TO RECLINER THIS AFTERNOON, TOLERATED WELL. REMAINS ON 2LNC. HOURLY ROUNDING COMPLETED THROUGH OUT THE DAY FOR PT. SAFETY.
[2018-04-22 20:00] VITALS: BP 138/62
[2018-04-23] VITALS: BP 124/58
--- NOTE | 2018-04-23 04:57 | NUR ---
ASSUMED PT CARE AT 1930, PT IS MED SURG STATUS, VSS. ON 2L NC SATTING MID TO HIGH 90'S. PT IS UP WITH ONE AND A WALKER TO THE BR, PT REPORTS DIARRHEA. PT DENIES ANY PAIN OR NEEDS AT THIS TIME. BED IN LOW POSITION, CALL LIGHT IN REACH, BED ALARM ON, YELLOW ARM BAND AND SOCKS IN PLACE. HOURLY ROUNDING COMPLETED FOR PT SAFETY.
[2018-04-23 05:14] LABS: HEMATOCRIT 25.5 % (37.0-47.0); HEMOGLOBIN 8.2 gm/dL (12.0-15.0); MCHC 32.2 g/dL (28.0-37.0); MCV 93.4 fL (80.0-100.0); RBC 2.73 mil/uL (4.20-5.00); RDW-CV 14.4 % (10.5-14.5); WBC 9.5 thou/uL (4.0-11.0)
[2018-04-23 05:25] LABS: CALCIUM 8.7 mg/dL (8.5-10.1); CREATININE 2.4 mg/dL (0.6-1.3); POTASSIUM 4.4 mmol/L (3.5-5.1)
[2018-04-23 05:30] LABS: CALCIUM 8.6 mg/dL (8.5-10.1); CREATININE 2.3 mg/dL (0.6-1.3); MAGNESIUM 1.8 mg/dL (1.8-2.4); POTASSIUM 4.7 mmol/L (3.5-5.1)
[2018-04-23 08:15] VITALS: BP 134/74
--- NOTE | 2018-04-23 08:30 | NUR ---
ASSUMED PT. CARE AND RECEIVED REPORT AT 0730. PT A/OX3, VSS, PT. MED/SURG STATUS. PT. ON 2L NC 94%, DENIES SOA. FULL ASSESSMENT COMPLETED, REFER TO CHARTING. PT. REPORTS HEADACHE, STATES IT IS BETTER WITH RECENT PAIN MED, BUT STILL PRESENT. CALL LIGHT IN REACH, WILL CONTINUE WITH PLAN OF CARE.
--- NOTE | 2018-04-23 15:41 | NUR ---
CONTINUE TO FOLLOW, PT MOST LIKELY NEEDS SNF AT [place]. FAXED THERAPY NOTES TO [facility], AWAIT OT EVAL. PT AND DTR AWARE AND AGREE.
[2018-04-23 16:53] VITALS: BP 114/59
--- NOTE | 2018-04-23 18:00 | NUR ---
PT. STABLE THROUGH OUT SHIFT. UP TO RECLINER X 2 AND WORKED WITH THERAPY. REMAINS ON 2LNC. BELLO REMOVED PER DISCUSSION WITH DR. VERDIN TO TRIAL FOR POSSIBLE DC TOMORROW. PT. TRANSFERED TO [facility], REPORT GIVEN TO DO. PT. LEFT WITH ALL BELONGINGS ACCOUNTED FOR.
--- NOTE | 2018-04-23 18:56 | NUR ---
ASSUMED PT CARE @ 1835. AGREE WITH PRIOR ASSESSMENT COMPLETED. PT HAS IV ZOFRAN INFUSING @ 25 MLS/HR. OXYGEN @ 2 L/NC. NON-PRODUCTIVE COUGH. PT ORIENTED TO ROOM. CALL LIGHT WITHIN REACH.
[2018-04-24 00:23] VITALS: BP 115/52
[2018-04-24 04:19] LABS: HEMATOCRIT 24.7 % (37.0-47.0); HEMOGLOBIN 7.8 gm/dL (12.0-15.0); MCH 29.6 pg (26.0-34.0); MCHC 31.7 g/dL (28.0-37.0); MCV 93.4 fL (80.0-100.0); NUCLEATED RBCS 0 /100WBC; PLATELET COUNT* 279 thou/uL (150-400); RBC 2.65 mil/uL (4.20-5.00); RDW-CV 14.5 % (10.5-14.5)
[2018-04-24 04:42] VITALS: BP 116/66
[2018-04-24 05:33] LABS: ABSOLUTE EOSINOPHILS 0.2 thou/uL (0.0-0.7); ABSOLUTE LYMPHOCYTES 1.4 thou/uL (0.8-5.3); ABSOLUTE MONOCYTES 0.9 thou/uL (0.0-1.2); ABSOLUTE NEUTROPHILS 7.5 thou/uL (1.6-8.1); ANISOCYTOSIS 1+; MYELOCYTES 1 %; PLATELET ESTIMATE ADEQUATE; POIKILOCYTOSIS 1+
[2018-04-24 05:34] LABS: HYPOCHROMASIA Occasional
--- NOTE | 2018-04-24 07:31 | NUR ---
PATIENT HAS SLEPT WELL THROUGHOUT THE NIGHT. VSS ON 2L 02 VIA NASAL CANNULA. NO C/O PAIN. PATIENT IS UP WITH ASSIST X 1 WITH WALKER TO THE BATHROOM. PATIENT URINATING ADEQUATELY. IV IN RIGHT FOREARM-SL- ZOSYN @ 25ML/HR. IV IN LEFT FOREARM-SL. PATIENT INSTRUCTED TO USE CALL LIGHT WHEN NEEDING ASSISTANCE. HOURLY ROUNDS MADE. WILL CONTINUE WITH PLAN OF CARE AND NURSING TO MONITOR.
[2018-04-24 08:00] VITALS: BP 157/73
--- NOTE | 2018-04-24 09:00 | NUR ---
OT NOTES FAXED TO [facility] TO OBTAIN SN[facility] AUTH
[2018-04-24] MEDS ORDERED: CLONAZEPAM 0.50.5 M1 PO (11:09)
[2018-04-24] MEDS ORDERED: NORCO 7.5-3251 EACH PO (11:09)
--- NOTE | 2018-04-24 14:28 | NUR ---
[facility] CALLED AND SAID SHE HAS ZACH FLORES FOR PT.TO COME TO A SKILLED BED TODAY. CHARLENE HAYDEN CAN PICK HER UP AT 1530. DAUGHTER ROBERT CALLED TO CHECK ON MOM AND INFORMED HER WELL. SHE SAID SHE IS DOWN IN THE BACK AND TO TELL HER MOM SHE WILL TRY TO SEE HER TOMORROW. PT.INFORMED. INFORMED PT.OF DISCHARGE TIME. CHART COPIED TO GO WITH PT. SAUL LEI WILL CALL REPORT. ORDERS FAXED TO [facility] [phone].
[2018-04-24] MEDS ORDERED: HYDROCORTISONE30 G9 RECTAL (14:49)
[2018-04-24] MEDS ORDERED: LEVAQUIN 500 M500 M3 PO (14:51)
[2018-04-24] MEDS ORDERED: ENOXAPARIN30 MG/0.1 SUBQ (14:52)
[2018-04-24 15:08] VITALS: BP 157/73
[2018-04-24 15:45] VITALS: BP 157/73
--- NOTE | 2018-04-24 18:44 | NUR ---
PT ALERT AND ORIENTED X 4. DENIES NAUSEA. LEFT LEG PAIN MANAGED WITH HYDROCODONE. PT OXYGEN SAT WAS AT 88% ON RA. PLACED ON 2 L/NC. UP WITH THERAPY DURING DAY. IV'S REMOVED FROM RIGHT AND LEFT FA. DISCHARGE INSTRUCTIONS AND MEDICAL INFORMATION GIVEN TO TRANSPORTER. PT LEFT WITH PERSONAL BELONGINGS BY WHEEL CHAIR WITH TRANSPORTER @ 7107 TO GO TO SKILLED FACILITY.
[2018-04-25 15:12] LABS: ANA INTERPRETATION Negative (())
== END 2018-04-24 15:45 | DRG 177 ==
LOC: M.ERS 11:46 → M.TBA-ER 12:57 → M.2W 12:57 → M.ORTHSURG 04-23 18:46
PROVIDERS: Emergency Medicine Emergency Medical Services; Internal Medicine; Internal Medicine Nephrology; ADMIT Internal Medicine
DX: J15.6 Pneumonia due to other Gram-negative bacteria (principal); J96.00 Acute respiratory failure, unspecified whether with hypoxia or hypercapnia; N17.9 Acute kidney failure, unspecified; N39.0 Urinary tract infection, site not specified; N18.4 Chronic kidney disease, stage 4 (severe); Y95 Nosocomial condition; I25.10 Atherosclerotic heart disease of native coronary artery without angina pectoris; F03.90 Unspecified dementia, unspecified severity, without behavioral disturbance, psychotic disturbance, mood disturbance, and anxiety; K21.9 Gastro-esophageal reflux disease without esophagitis; I35.0 Nonrheumatic aortic (valve) stenosis; F32.9 Major depressive disorder, single episode, unspecified; D64.9 Anemia, unspecified; I48.2 Chronic atrial fibrillation; N28.1 Cyst of kidney, acquired; I12.9 Hypertensive chronic kidney disease with stage 1 through stage 4 chronic kidney disease, or unspecified chronic kidney disease; Z86.73 Personal history of transient ischemic attack (TIA), and cerebral infarction without residual deficits; Z79.01 Long term (current) use of anticoagulants; I25.2 Old myocardial infarction; Z79.899 Other long term (current) drug therapy